=== PATIENT | male | born 1990 | race Two or more races ===

== ENCOUNTER 2021-12-13 08:24 | Emergency (ER) | payer SELFPAY ==
[~2021-12-13] VITALS: Ht 157.5 cm; Wt 70.8 kg
--- NOTE | 2021-12-13 08:17 | NUR ---
[facility] report. ETA 10min.
[2021-12-13 08:29] VITALS: BP 139/87
--- NOTE | 2021-12-13 08:32 | ER.PDOC ---
General Chief Complaint: Requesting Medical Care Stated Complaint: L flank pain Time seen by MD: 08:30 Source: patient Exam Limitations: no limitations History of Present Illness Initial Comments Left flank pain radiating to left lower quadrant that started this morning. Patient brought in by EMS and received Morphine with improvement in pain. Timing/Duration: 4-6 hours Severity/Quality: moderate, sharpness Radiation: LLQ Associated Symptoms: denies symptoms Exacerbated by: nothing Relieved By: nothing Vital Signs First Vital Signs Date Time Temp Pulse Resp B/P (MAP) Pulse Ox O2 Delivery O2 Flow Rate FiO2 12/13/21 08:29 86.2 69 18 96 12/13/21 08:52 139/87 (104) Room Air* 0 21 Last Vital Signs Date Time Temp Pulse Resp B/P (MAP) Pulse Ox O2 Delivery O2 Flow Rate FiO2 12/13/21 09:15 86.4 72 18 121/81 (94) 98 Room Air* 0 21 Past Medical History Medical History: no pertinent history Surgical History: no surgical history Family History Significant Family History: no pertinent family hx Social History Smoking: non-smoker Alcohol Use: none Drug Use: none Constitutional: no symptoms reported EENTM: no symptoms reported Respiratory: no symptoms reported Cardiovascular: no symptoms reported Gastrointestinal: see HPI Genitourinary: see HPI All Other Systems: Reviewed and Negative Physical Exam General Appearance: No Apparent Distress, WD/WN HEENT: PERRL/EOMI, Normal ENT Inspection, TMs Normal, Pharynx Normal Neck: Non-Tender, Full Range of Motion, Supple, Normal Inspection Respiratory: chest non-tender, lungs clear, normal breath sounds, no respiratory distress, no accessory muscle use Cardiovascular: Normal Peripheral Pulses, Regular Rate, Rhythm, No Edema, No Gallop, No JVD, No Murmur Gastrointestinal: Normal Bowel Sounds, No Organomegaly, No Pulsatile Mass, Tenderness (LLQ) Back: Normal Inspection, No CVA Tenderness, No Vertebral Tenderness Extremities: Normal Range of Motion, Non-Tender, Normal Inspection, No Pedal Edema, No Calf Tenderness, Normal Capillary Refill, Pelvis Stable 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 (12/13/21 08:29) Urinalysis (12/13/21 08:29) Ct Abd/Pelvis Wo Iv Contrast (12/13/21 08:29) Urine Culture (12/13/21 09:10) Vital Signs Date Time Temp Pulse Resp B/P (MAP) Pulse Ox O2 Delivery O2 Flow Rate FiO2 12/13/21 09:15 86.4 72 18 121/81 (94) 98 Room Air* 0 21 12/13/21 08:52 86.2 69 18 139/87 (104) 96 Room Air* 0 21 12/13/21 08:52 86.2 69 18 12/13/21 08:29 86.2 69 18 96 Laboratory Tests Test 12/13/21 08:37 12/13/21 09:23 White Blood Count 5.9 10^3/uL (4.5-11.0) Red Blood Count 4.78 10^6/uL (4.50-5.90) Hemoglobin 14.2 g/dL (13.9-16.3) Hematocrit 43.9 % (37.0-53.0) Mean Corpuscular Volume 91.8 fL (78-100) Mean Corpuscular Hemoglobin 29.7 pg (26-34) Mean Corpuscular Hemoglobin Concent 32.3 g/dL (33-36.5) L Red Cell Distribution Width 12.5 % (11.5-14.5) Platelet Count 144 10^3/uL (150-400) L Mean Platelet Volume 10.0 fL (7.8-11.0) Neutrophils (%) (Auto) 61.0 % (41.0-85.0) Lymphocytes (%) (Auto) 26.1 % (24.0-44.0) Monocytes (%) (Auto) 6.6 % (5.0-12.0) Neutrophils # (Auto) 3.6 10^3/uL (1.8-7.7) Lymphocytes # (Auto) 1.54 10^3/uL1 (1.0-4.8) Monocytes # (Auto) 0.4 10^3/uL (0.3-0.8) Absolute Immature Granulocyte (auto 0.01 10^3 u/L (0-2) Absolute Eosinophils (auto) 0.3 10^3/uL (0.0-0.2) H Immature Granulocytes % 0.20 % (0.00-0.50) Eosinophils % 5.1 % (0.0-5.0) H Basophils % 1.0 % (0.0-0.2) H Basophils # 0.1 10^3/uL (0.0-0.1) Prothrombin Time 10.4 SEC (9.1-11.5) Prothrombin Time INR (Non-Therap) 1.0 Activated Partial Thromboplast Time 28.8 SEC (22.5-33.1) Sodium Level 143 mmol/L (132-145) Potassium Level 4.0 mmol/L (3.6-5.2) Chloride Level 110.0 mmol/L (96-109) H Carbon Dioxide Level 25.0 mmol/L (20.0-32) Anion Gap 12.0 Blood Urea Nitrogen 15 mg/dL (7-18) Creatinine 1.07 mg/dL (0.59-1.40) Estimated GFR () 96.3 (>/=60) Est GFR (CKD-EPI)(Non-Afr [place]) 79.6 (>/=60) BUN/Creatinine Ratio 14.0 Glucose Level 94 mg/dL (70-110) Calcium Level 8.2 mg/dL (8.4-10.5) L Total Bilirubin 0.4 mg/dL (0.2-1.0) Aspartate Amino Transferase (AST) 14 U/L (0-35) Alanine Aminotransferase (ALT) 19 U/L (12-78) Alkaline Phosphatase 77 U/L (50-136) Total Protein 6.2 g/dL (6.4-8.2) L Albumin 3.5 g/dL (3.4-5.0) Globulin 2.7 Albumin/Globulin Ratio 1.296 Urine Collection Type UNKNOWN Urine Color YELLOW Urine Appearance CLEAR Urine Bilirubin NEGATIVE (NEGATIVE) Urine Ketones NEGATIVE (NEGATIVE) Urine Specific [place] 1.025 (1.005-1.030) Urine pH 5.0 (4.5-8.0) Urine Protein NEGATIVE (NEGATIVE) Urine Urobilinogen 0.2 E.U./dL (0.2) Urine Nitrate NEGATIVE (NEGATIVE) Urine Leukocyte Esterase NEGATIVE (NEGATIVE) Urine Glucose (Auto)(UA) NEGATIVE (NEGATIVE) Urine Blood 3+ (NEGATIVE) H Urine RBC 10-25 RBC/HPF (NONE SEEN) H Urine WBC 0-2 WBC/HPF (0-2) Urine Squamous Epithelial Cells FEW (<=FEW) Urine Bacteria FEW (NONE SEEN) H Progress Progress CT abdomen/pelvis: 0.2 cm left UVJ stone causing mild hydroureteronephrosis. Urinalysis shows 3+ blood, no UTI. CBC and chemistry are unremarkable. Patient received Toradol and morphine and he is feeling better. He also received Flomax. Reviewed results with him and he voices understanding. ER DEPART Departure Time of Disposition: 09:41 Disposition: 01 HOME / SELF CARE / HOMELESS Impression: Primary Impression: Ureteral calculus, left Additional Impression: Colic, ureteral Condition: Improved Additional Instructions: Tramadol Ibuprofen Flomax Follow-up with urologist in 2 to 3 days if no improvement Return to ED if worsening pain or concerns Duration or Time Spent with Pa: 45 min Problem Qualifiers DAVIAN,SUSY Thomas MD Dec 13, 2021 08:32
[2021-12-13 08:41] LABS: BASOPHIL # 0.1 10^3/uL (0.0-0.1); EOSINOPHIL # 0.3 10^3/uL (0.0-0.2); EOSINOPHIL % 5.1 % (0.0-5.0); LYMPHOCYTES # 1.54 10^3/uL1 (1.0-4.8); LYMPHOCYTES % 26.1 % (24.0-44.0); MEAN CORP HGB 29.7 pg (26-34); MONOCYTES # 0.4 10^3/uL (0.3-0.8); MONOCYTES % 6.6 % (5.0-12.0); NEUTROPHIL # 3.6 10^3/uL (1.8-7.7); PLATELET COUNT 144 10^3/uL (150-400); RED CELL DISTRIBUTION WIDTH 12.5 % (11.5-14.5)
[2021-12-13 08:52] VITALS: BP 139/87
--- NOTE | 2021-12-13 09:03 | DIREP ---
PROCEDURE:CT ABD/PELVIS WITHOUT CONTRAST TECHNIQUE:No oral contrast was given. Axial cuts were obtained through the abdomen and pelvis without IV contrast. The images were viewed at lung and soft tissue settings. Sagittal and coronal reconstructions are provided. COMPARISON:None. INDICATIONS:left flank pain FINDINGS: LOWER CHEST:No infiltrate or pleural effusion. LIVER:Normal. BILIARY:No gallstones or biliary duct dilatation. PANCREAS:Normal. SPLEEN:Normal. URINARY TRACT:Left UVJ stone, 0.2 cm, causing mild hydroureteronephrosis and mild inflammatory stranding. No renal calculi. Unremarkable urinary bladder. ADRENALS:Normal. AORTA/VASCULAR:Normal. RETROPERITONEUM:Normal. BOWEL/MESENTERY:No bowel obstruction, inflammatory stranding, free fluid or air. Normal air-filled appendix. ABDOMINAL WALL:Normal. PELVIS:Normal. BONES:Normal. OTHER:Normal. CONCLUSION:0.2 cm left UVJ stone causing mild hydroureteronephrosis. Dictated by: Ofe Dwyer MD on 12/13/2021 at 08:59 AM
[2021-12-13 09:15] VITALS: BP 121/81
[2021-12-13 09:26] LABS: BILIRUBIN,URINE NEGATIVE (NEGATIVE); UROBILINOGEN,URINE 0.2 E.U./dL (0.2)
[2021-12-13] MEDS ORDERED: FLOMAX PO STA (09:37)
[2021-12-13] MEDS ORDERED: FLOMAX ONE (09:37)
== END 2021-12-13 09:50 | disposition home or self-care (01) ==
LOC: ER 08:24
DX: N20.1 Calculus of ureter (principal); N36.8 Other specified disorders of urethra
CPT/HCPCS: 36415; 74176; 80053; 81001; 85025; 85610; 85730; 87086; 99284